=== PATIENT | female | born 2000 | race Caucasian/White ===

== ENCOUNTER 2021-05-10 08:15 | Emergency (ER) | payer BC ==
[~2021-05-10] VITALS: Ht 157.5 cm; Wt 50.4 kg
[~2021-05-10 08:15] MED LIST: BENTYL 10 MG CA10 M1 PO; LAMICTAL100 MG PO; ZOFRAN ODT4 MG PO
[2021-05-10 08:28] VITALS: BP 114/57
== END 2021-05-10 10:40 | disposition left against medical advice (07) ==
LOC: M.ERS 08:15
DX: Z53.21 Procedure and treatment not carried out due to patient leaving prior to being seen by health care provider (principal)